=== PATIENT | male | born 1955 | race Two or more races ===

== ENCOUNTER → 2024-06-29 | Outpatient (CLI) | payer MEDICARE, BC ==
[~2024-06-29] MED LIST: CARV3.1240 PO; POM; SACU1TAB PO; SILD100T PO; SPIR25TA PO
[2024-06-29 09:05] VITALS: BP 129/80; PULSE 69; RESP 16; O2SAT 96
[2024-06-29 09:15] VITALS: BP 134/75; PULSE 67; RESP 16; O2SAT 96
--- NOTE | 2024-06-29 12:08 | DVH ---
EXAM: XY CHEST TWO VIEWS ROUTINE CLINICAL HISTORY: pain COMPARISON: None TECHNIQUE: Frontal and lateral view of the chest was obtained FINDINGS: Lines and Tubes: None Lungs: No focal consolidation. Pleura: No effusion. No pneumothorax. Cardiomediastinal contours: Unremarkable Bones: No acute osseous abnormality. IMPRESSION: No acute cardiopulmonary disease.
== END | disposition home or self-care (01) ==
LOC: Rad HDHVI 08:57
PROVIDERS: ATTEND Internal Medicine Cardiovascular Disease
DX: Z01.818 Encounter for other preprocedural examination (principal); I42.0 Dilated cardiomyopathy; I44.7 Left bundle-branch block, unspecified; R09.89 Other specified symptoms and signs involving the circulatory and respiratory systems; R06.02 Shortness of breath; I50.23 Acute on chronic systolic (congestive) heart failure
CPT/HCPCS: 71046; 93005; G0463

== ENCOUNTER 2024-07-02 07:03 | Day surgery (SDC) | payer MEDICARE, BC ==
[2024-06-29 11:47] LABS: Basophils # (auto) 0 10 ^3/uL (0-0.2); Basophils % (auto) 0.3 % (0.0-2.0); Eosinophils # (auto) 0.1 10 ^3/uL (0-0.8); Eosinophils % (auto) 1.2 % (0.0-7.0); Hematocrit 49.8 % (41.0-53.0); Hemoglobin 16.7 g/dL (13.5-17.5); Lymphocytes # (auto) 3.2 10 ^3/uL (0.4-5.4); Lymphocytes % (auto) 46.4 % (10.0-50.0); Mean Corpuscular Hemoglobin 27.9 pg (28.0-32.0); Mean Corpuscular Hgb Conc. 33.5 g/dL (32.0-36.0); Mean Corpuscular Volume 83.3 fL (80.0-100.0); Monocytes # (auto) 0.5 10 ^3/uL (0-1.3); Monocytes % (auto) 7.4 % (0.0-12.0); Neutrophils # (auto) 3.1 10 ^3/uL (1.6-8.6); Neutrophils % (auto) 44.7 % (37.0-80.0); Nucleated Red Blood Cells % 0.1 %; Platelet Count (auto) 239 10^3/uL (140-450); Red Blood Cells 5.97 10^6/uL (4.5-5.90); Red Cell Distribution Width 13.2 % (11.8-14.3); White Blood Cell 6.9 10^3/uL (4.4-10.8)
[2024-06-29 11:58] LABS: INR 1.01 (0.9-1.15); Partial Thromboplastin Time 31.2 SEC (24.5-34.5); Prothrombin Time 10.7 sec (9.3-11.8)
[2024-06-29 12:04] LABS: Anion Gap 6 (5-15); Carbon Dioxide 30 mmol/L (20-31); Chloride 103 mmol/L (98-107); Potassium 4.2 mmol/L (3.5-5.1); Sodium 139 mmol/L (136-145)
[2024-06-29 12:05] LABS: Calcium 10.1 mg/dL (8.7-10.4)
[2024-06-29 12:09] LABS: Glucose 101 mg/dL (74-106)
[2024-06-29 12:10] LABS: BUN/Creatinine Ratio 13.1 (10.0-20.0); Blood Urea Nitrogen 13 mg/dL (9-23)
[2024-07-02] VITALS (9 sets, daily range): BP systolic 116–130; BP diastolic 51–71; PULSE 61–70; RESP 14–22; TEMP 97.5; O2SAT 92–98
[~2024-07-02] VITALS: Ht 188 cm; Wt 107.0 kg
[2024-07-02] MEDS ORDERED: IOHEXOL 350 MG/ML 100ML IJ ONE (08:47)
[2024-07-02] MEDS ORDERED: ANGIOMAX 250 MG VIAL IV ONE (08:48)
[2024-07-02] MEDS ORDERED: SODIUM CHL 0.9% 0 ML ONE (08:50)
[2024-07-02] MEDS ORDERED: LIDOCAINE 2%HCL (LOCAL ANESTH.) INJ 20ML MDV ONE (08:50)
[2024-07-02] MEDS ORDERED: MIDAZOLAM HCL 2MG/2ML 2ml VIAL (1mg/ml) ONE (08:50)
[2024-07-02] MEDS ORDERED: fentaNYL CITRATE 100 MCG/2 ML VL ONE (08:50)
--- NOTE | 2024-07-02 10:56 | DVHOP ---
DATE OF SURGERY: 07/02/2024 PROCEDURES PERFORMED: * Selective left and right coronary angiography. * Ventriculogram. * Right iliac angiography. * Conscious sedation. PROCEDURE: The patient was prepped and draped under sterile condition. Xylocaine 1% used to anesthetize the right groin. Using Cook needle, right femoral artery was engaged with Seldinger technique a 6-Ghanaian sheath in the right femoral artery. Using 6-Gh[place]ian JL4 catheter and 6-[place]ian JR4 catheter, selective left and right coronary angiographies were performed. Pigtail was used for the ventriculogram. Right femoral arteriotomy site was closed using the Angio-Seal device following right iliac angiography. There were no complications. The patient tolerated the procedure. Total contrast used 40 mL Optiray. Total fluoro time was 1 minute. RESULTS: * Left main patent. * Left anterior descending artery was patent. * Circumflex was patent. * Right coronary artery was patent. * Left ventricular function shows global hypokinesis with an estimated EF of 30% with an LVEDP of 8 mmHg with no gradient across the aortic valve. Thus, the patient with dilated cardiomyopathy, depressed left ventricular ejection fraction, EF around 30% with no elevation in LVEDP. LVEDP was only 8 mmHg with left ventricular systolic pressure of 120. Thus, the patient with dilated cardiomyopathy. Aggressive risk modification. The patient is a candidate for AICD. Margarito White MD SA/JUANIS/FAZAL TID: [id number] RECEIPT: [id number]
--- NOTE | 2024-07-05 04:09 | DVHHP ---
ADMIT DATE: 07/02/2024 HISTORY OF PRESENT ILLNESS: The patient is 69 years old with a history of hypertension. Now with sign and symptom complex of increasing shortness of breath and ejection fraction by echocardiography shown to be less than 30%. CURRENT MEDICATIONS: Include carvedilol, Entresto, Aldactone, and Viagra. PERTINENT MEDICAL HISTORY: Also significant for strong family history of coronary artery disease, mother and 5 sisters all with history of congestive heart failure and coronary artery disease. He has chronic lung disease secondary to asthma, but he is a nonsmoker. SOCIAL HISTORY: He denies any tobacco use. No alcohol use. REVIEW OF SYSTEMS: Denies any seizure disorders nor any neurological disorders such as CVA or movement disorders. Denies any GI symptomatology such as irritable bowel syndrome, inflammatory bowel disease, diarrhea, constipation. No liver disease. No kidney disease. No history of any palpitations in the past. No syncopal episode at this time. Denies any bleeding diathesis such as hematemesis, hemoptysis, hematochezia or hematuria. Denies any history of any trauma. No fever, no chills. No history of myocardial infarction in the past. No history of diabetes. No history of renal insufficiency. PHYSICAL EXAMINATION: VITAL SIGNS: Blood pressure is 110/70, pulse of 60 and regular, O2 saturation 98% on room air. HEENT: Pupils are reactive. Funduscopic exam is benign. Sclerae anicteric. Extraocular muscles are intact. Tympanic membranes are negative. Oral mucosa moist. Posterior pharynx without any exudate. NECK: No JVD appreciated. Carotid pulses are 2+ symmetrical. Normal upstroke and contour. No bruits appreciated. No evidence of any cervical adenopathy. No supraclavicular adenopathy. PULMONARY: Clear to auscultation in all lung edwards. Tympanic to percussion. No rhonchi, no wheezes, no egophony. CARDIOVASCULAR: Regular rate without any S3, without S4. There is a soft 2/6 systolic murmur along the left sternal border. PMI, however, not appears to be displaced. ABDOMEN: Obese. Unable to appreciate organomegaly. Liver approximately 5 cm by percussion. Stool guaiac is negative. NEUROLOGIC: The patient is intact. DTRs are 2+ symmetrical. Cranial nerves 2-12 within normal limits. Sensory and motor modalities are intact. ASSESSMENT AND PLAN: Thus, the patient with marked decrease in left ventricular ejection fraction, EF around 30% by echocardiography, now to undergo coronary angiography to define coronary anatomy. Further recommendations after the angiogram. Margarito White MD SA/KATHERIN/JASON TID: [id number] RECEIPT: [id number]
== END 2024-07-02 11:54 | disposition home or self-care (01) ==
LOC: CATH 07:03
PROVIDERS: ATTEND Internal Medicine Cardiovascular Disease
DX: I25.10 Atherosclerotic heart disease of native coronary artery without angina pectoris (principal); R79.1 Abnormal coagulation profile; I10 Essential (primary) hypertension; I42.0 Dilated cardiomyopathy; J45.909 Unspecified asthma, uncomplicated; Z79.899 Other long term (current) drug therapy; Z82.49 Family history of ischemic heart disease and other diseases of the circulatory system
CPT/HCPCS: 36415; 80048; 85025; 85610; 85730; 93458; C1894; J1644; J2250; J3010; Q9967; 99152